=== PATIENT | female | born 1935 | race Two or more races ===

== ENCOUNTER 2018-12-21 15:34 | Emergency (ER) | payer OTHER, MEDICAID ==
[~2018-12-21] VITALS: Ht 157.5 cm; Wt 56.2 kg
[2018-12-21 15:38] VITALS: BP 122/73
[2018-12-21 18:49] VITALS: BP 122/73
== END 2018-12-21 18:49 | disposition home or self-care (01) ==
LOC: MED 15:34
DX: L03.211 Cellulitis of face (principal)
CPT/HCPCS: 99283

== ENCOUNTER 2019-03-06 09:37 | Inpatient (IN) | payer OTHER, MEDICAID ==
[~2019-03-06] VITALS: Ht 162.6 cm; Wt 59.0 kg
[2019-03-06 09:44] VITALS: BP 105/57
--- NOTE | 2019-03-06 09:50 | NUR ---
83 YR OLD F BIB FAMILY W/ C/O FALL AROUND 3AM TODAY. PT STATES SHE TRIPPED OVER A FAN IN HER ROOM AND LANDED ON HER L SIDE. PT DENIES LOC. PAIN 9/10 TO L SIDE OF BODY. BRUISES NOTED IN LT MEDIAL KNEE. ABLE TO MOVE BLE WELL, DENIES SOB, NO VISUAL LT FLANK BRUISING NOTED. HX: CHF, osteoporosis, ICD RX: ASPIRIN, ENTRESTO
--- NOTE | 2019-03-06 10:26 | NUR ---
EVALUATING PT W/ FAMILY AT BEDSIDE
--- NOTE | 2019-03-06 10:44 | NUR ---
ACTIVE DIRECTORY SYSTEMS ADMINISTRATOR, EDEN RUSSELL AT BEDSIDE
--- NOTE | 2019-03-06 14:09 | NUR ---
placed knee immobilizer on left knee of pt
[2019-03-06] MEDS ORDERED: HYDROcodone/APAP 5/325 MG 1 TAB TAB PO PRN ×2 (14:30→15:00)
--- NOTE | 2019-03-06 14:55 | NUR ---
Unable to obtain medication reconciliation at this time. Pt does not recall her medications or dosages. Daughter will go to her home and collect her meds and bring them to the hospital for the med rec to be update.
[2019-03-06] MEDS ORDERED: ONDANSETRON 4 MG/2 ML VIAL IVP PRN (15:00)
[2019-03-06] MEDS ORDERED: LORazepam 2 MG/ML VIAL IVP PRN (15:00)
[2019-03-06] MEDS ORDERED: ACETAMINOPHEN 325 MG TAB PO PRN (15:00)
[2019-03-06 15:20] VITALS: BP 96/41
--- NOTE | 2019-03-06 15:20 | NUR ---
Patient will be admitted to care of Dr Chavez. Admited to M/S room 119b. Belongings list completed. Report to FARRUKH Lerma.
--- NOTE | 2019-03-06 15:20 | NUR ---
PATIENT ARRIVED FROM ED. RECEIVED BEDSIDE REPORT FROM [facility] ED NURSE. PATIENT TRANSPORTED VIA GURNEY. PATIENT IS ALERT, AWAKE, AND ORIENTED X4. PATIENT DX: KNEE FRACTURE. LEFT KNEE WITH IMMOBILIZER. IV PLACED INTACT AND PATENT TO LEFT AC 20G SALINE LOCK. PATIENT ORIENTED TO ROOM AND ENVIRONMENT. SAFETY MEASURES PROVIDED. ALL PLANS OF CARE DISCUSSED WITH PATIENT. CALL LIGHT WITHIN REACH.
--- NOTE | 2019-03-06 18:42 | NUR ---
PATIENT IS IN STABLE CONDITION. WILL ENDORSE TO NIGHT NURSE.
[2019-03-06] MEDS ORDERED: CARV12.5 PO (19:01)
[2019-03-06] MEDS ORDERED: XALOS OP (19:01)
[2019-03-06] MEDS ORDERED: FURO-572 PO (19:01)
[2019-03-06] MEDS ORDERED: DIGO0.122 PO (19:01)
[2019-03-06] MEDS ORDERED: ASPI-1718 PO (19:01)
[2019-03-06] MEDS ORDERED: SACU1TAB PO (19:01)
[2019-03-06] MEDS ORDERED: LORA-476 PO (19:01)
[2019-03-06] MEDS ORDERED: OSC500 PO (19:01)
--- NOTE | 2019-03-06 19:15 | NUR ---
DR. GAMBOA CALLED BACK IN REGARDS TO MEDICATION RECONCILIATION. PER CONTINUE HOME MEDICATIONS.
--- NOTE | 2019-03-06 19:15 | NUR ---
REPORT GIVEN TO [employer] [employer] MAIL CARRIER NURSE. PATIENT IS IN STABLE CONDITION.
--- NOTE | 2019-03-06 19:20 | NUR ---
REECEIVED PT FROM DAY SHIFT NURSE PT IS AAOX4 WITH LEFT KNEE FX DENIES ANY PAIN AT THIS TIME CALLL LIGHT REACH;;, INITIAL ASSESSMENT DONE
[2019-03-06] MEDS ORDERED: LORazepam 1 MG TAB PO PRN (19:35)
[2019-03-06 20:00] VITALS: BP 111/74
[2019-03-06] MEDS: LATANOPROST 0.005% OP 2.5 ML BTL OP SCH (20:44)
--- NOTE | 2019-03-06 23:00 | NUR ---
PT SLEEPING WELL AFTER ATIVAN GIVEN FOR ANXIOUS
[2019-03-07] VITALS: BP 107/66
--- NOTE | 2019-03-07 03:07 | NUR ---
PT REMAIN STABLE AT THIS TIME NOT DISTRESS NOTED
--- NOTE | 2019-03-07 05:34 | NUR ---
SPONGE BATH GIVEN LINEN CHANGED NOT DISTRESS NOTED REPOSITIONED Q2H
--- NOTE | 2019-03-07 06:19 | NUR ---
;PT RESTING ON BED NOT DISTRESS NOTED PENDING TO BE SEEN BY DR ABREU
--- NOTE | 2019-03-07 07:28 | NUR ---
RECEIVED REPORT FROM NIGHT RN. PATIENT IS FULL CODE, NKA. PT IS FALL RISK FOR L KNEE FX. FALL RISK PRECAUTIONS IN PLACE, WRISTBAND APPLIED, SIGN AT DOOR, YELLOW SOCKS ON. PATIENT HAS A LEFT AC 20G HEP LOCK. PATIENT IS TO HAVE CONSULT WITH DR ABREU. PATIENT USES BEDPAN. WILL REVIEW AND CONTINUE WITH PLAN OF CARE FOR THE DAY.
[2019-03-07 08:00] VITALS: BP 110/70
[2019-03-07 08:16] LABS: BASOPHILS # (AUTO) 0.1 K/uL (0.00-0.22); BASOPHILS % (AUTO) 0.9 % (0.0-2.0); EOSINOPHILS # (AUTO) 0.3 K/uL (0-0.4); EOSINOPHILS % (AUTO) 4.6 % (0.0-4.0); HEMATOCRIT 37.4 % (36-48); HEMOGLOBIN 12.3 g/dL (12.0-16.0); LYMPHOCYTES # (AUTO) 1.8 K/uL (2.5-16.5); LYMPHOCYTES % (AUTO) 31.9 % (20.5-51.1); MEAN CORPUSCULAR HEMOGLOBIN 31 pg (27-31); MEAN CORPUSCULAR HGB CONC 33 g/dL (33-37); MEAN CORPUSCULAR VOLUME 94.4 fL (80-94); MONOCYTES # (AUTO) 0.5 K/uL (0.8-1.0); MONOCYTES % (AUTO) 8.4 % (1.7-9.3); NEUTROPHILS # (AUTO) 3.1 K/uL (1.8-7.7); NEUTROPHILS % (AUTO) 54.2 % (42.2-75.2); PLATELET COUNT (AUTO) 133 K/uL (140-450); RED BLOOD CELL COUNT(AUTO) 3.96 MIL/uL (4.20-5.40); RED CELL DISTRIBUTION WIDTH 14.4 % (11.6-13.7); WHITE BLOOD COUNT (AUTO) 5.8 K/uL (4.8-10.8)
--- NOTE | 2019-03-07 08:33 | NUR ---
PATIENT HAS BEEN SCREENED AND CATEGORIZED LOW NUTRITION RISK. PATIENT WILL BE SEEN WITHIN 7 DAYS OF ADMISSION. 03/13/[address]
[2019-03-07 09:00] LABS: ALBUMIN 3.2 g/dL (3.4-5.0); ANION GAP 13.2 (8-16); ASPARTATE AMINOTRANSFERASE 22 U/L (15-37); CARBON DIOXIDE 24.9 mmol/L (21-32); CHLORIDE 109 mmol/L (98-107); GLUCOSE 92 mg/dL (74-106); POTASSIUM 5.1 mmol/L (3.5-5.1); SODIUM SERUM 142 mmol/L (136-145); TOTAL BILIRUBIN 1.3 mg/dL (0.0-1.0); UREA NITROGEN, BLOOD 16 mg/dL (7-18)
[2019-03-07] MEDS ORDERED: CARVEDILOL 12.5 MG TAB PO SCH (09:00)
[2019-03-07] MEDS ORDERED: ENOXAPARIN 40 MG/0.4 ML SYR SUBQ SCH (09:00)
[2019-03-07] MEDS ORDERED: VALSARTAN PO SCH (09:00)
[2019-03-07] MEDS ORDERED: DIGOXIN 0.125 MG TAB PO SCH (09:00)
[2019-03-07] MEDS ORDERED: FUROSEMIDE 20 MG TAB PO SCH (09:00)
[2019-03-07] MEDS ORDERED: ASPIRIN 81 MG TAB.CHEW PO SCH (09:00)
[2019-03-07] MEDS ORDERED: SACUBITRIL PO SCH (09:00)
[2019-03-07] MEDS: CALCIUM CARBONATE 500 MG TAB PO SCH ×3 (09:56→14:07)
--- NOTE | 2019-03-07 10:00 | NUR ---
ADMINISTERED MORNING CALCIUM AND ASPIRIN. DID NOT ADMINISTER BP MEDICATION FOR BP 91/53 AND HR 55. PT AT BEDSIDE, TO WORK WITH PATIENT.
--- NOTE | 2019-03-07 10:50 | NUR ---
PER PATIENTS REQUEST, ADMINISTERED TYLENOL FOR PAIN. WILL RE-ASSESS
--- NOTE | 2019-03-07 11:30 | NUR ---
PATIENT HAS DISCHARGE ORDER. PATIENTS DAUGHTER AND SON AT BEDSIDE. INFORMED THEM OF DC PLAN FOR PT AT HOME. DAUGHTER DON SPOKE TO DR WALLER REGARDING DC PLANS. WILL F/U.
--- NOTE | 2019-03-07 13:15 | NUR ---
PATIENT IS RESTING IN BED, AWAKE. DAUGHTER AND SON AT BEDSIDE.
--- NOTE | 2019-03-07 14:12 | NUR ---
PATIENTS FAMILY MEMBERS SPOKE TO SOCIAL WORKERS NGOZI ABOUT SNF PLACEMENT. WILL CALL NURSE OB TO F/U
--- NOTE | 2019-03-07 15:34 | NUR ---
DISCHARGE PLANNING: LATE ENTRY: RECEIVED AN ORDER FOR FOR PHYSICAL THERAPY. CONTACTED [facility], ABLE TO SPEAK TO OLIVERIO (ANSWERING SERVICE). SHE STATED IN CHARGE IS DARIO LARA [phone]. CONTACTED THE PROVIDED NUMBER, PER DARIO SHIREEN IN CHARGE FOR THIS PATIENT IS [facility] [phone]. PER [facility] TO GO AHEAD AND FAX OVER ORDER TO [phone]. 1245: RECEIVED A CALL FROM CHARGE NURSE INFORMING ME REGARDING FAMILY REQUEST TO MEET WITH SW. MAKSIM MELVIN MADE AWARE. PER NGOZI FAMILY IS REQUESTING FOR SNF PLACEMENT DUE TO PATIENT LIVES ALONE AND NO IS ABLE TO TAKE CARE OF THE PATIENT. PRIMARY RN ALFONSO OVALLES. I REQUESTED TO GET AN ORDER FOR SNF PLACEMENT FROM DR. WALLER. Addendum: 03/07/19 at 1545 by Em Ang PER VERONA MOSLEY FOR SNF PLACEMENT AND SPOKE TO PATIENT'S INSURANCE ALREADY. ORDER AND PT NOTES FAXED TO [facility]. PER SHIREEN COX, SHE HAS A BED IN [place] RO[address] AND WILL BE ABLE TO ARRANGE TRANSPORT. WILL CALL ME BACK FOR TRANSPORT INFO AND ETA. PRIMARY RN MADE AWARE. Addendum: 03/07/19 at 1711 by Em Ang CM MET WITH THE PATIENT AND HER DAUGHTER DON AT THE BEDSIDE TO DISCUSS DC PLANNING. PATIENT'S DAUGHTER STATED THAT SHE CALLED THE INSURANCE AND THEY WERE TOLD THAT [facility] THE [facility]IENT. THEY ALSO MENTIONED THE [facility] IF [facility] HAS A BED, PATIENT WANTS TO GO THERE. AND IF THERE IS NOT, [facility] IS FINE. CONTACTED SHIREEN COX, SHE STATED SHE TRIED TO REACH OUT WITH RANJAN MARTINEZ AND LEFT SEVERAL MESSAGES AND THEY DID NOT CALL HER BACK YET. SHE ALSO STATED THEY ARE ABLE TO SET UP A WILL CALL PICK WITH [facility] AND THE EARLIEST THEY CAN CUSTOMER DEVELOPMENT REPRESENTATIVE IS AT 10PM. CONTACTED PATIENT'S DAUGHTER DON AND MADE HER AWARE WHAT THE INSURANCE TOLD ME. SHE STATED [facility] IS OK HOWEVER SHE WAS SAYING THAT THE CUSTOMER DEVELOPMENT REPRESENTATIVE IS LATE AND IF WE CAN DO THE DC TOMORROW. I CONTACTED SHIREEN COX AND MADE HER AWARE, SHE STATED WE HAVE THE DC ORDER ALREADY. Addendum: 03/07/19 at 1719 by Em Ang CM CONTACTED PATIENT'S DAUGHTER DON, NO ANSWER. LEFT MESSAGE. Addendum: 03/07/19 at 1729 by Em Ang CM ABLE TO SPEAK TO PATIENT'S DAUGHTER DON, I INFORMED HER OF WHAT THE INSURANCE TOLD ME. SHE STATED OK, 10PM CUSTOMER DEVELOPMENT REPRESENTATIVE IS OK. Addendum: 03/07/19 at 1732 by Em Ang CM CONTACTED [facility] AT [phone], ABLE TO SPEAK TO OLIVERIO. CUSTOMER DEVELOPMENT REPRESENTATIVE WILL BE AT 10 PM. PRIMARY RN AND CHARGE NURSE MADE AWARE.
--- NOTE | 2019-03-07 15:35 | NUR ---
Personal Care Aid Note: SW met with patient and patient's family regarding discharge plan. Patient expressed concerns with returning home under home health. Family began discussing discharge options amongst themselves and requested to be placed in SNF. SW notified CM and charge nurse. SW will follow up as needed.
--- NOTE | 2019-03-07 15:40 | NUR ---
PATIENT WILL BE DISCHARGED TO [facility] IN ROOM 22A. AWAITING CALL FOR PICKUP TIME.
[2019-03-07 16:00] VITALS: BP 95/52
--- NOTE | 2019-03-07 17:45 | NUR ---
CALLED [facility]. GAVE REPORT TO ABUNDIO CHADWICK, REGARDING PT CARE. NO FURTHER QUESTIONS FROM FACILITY. BUSINESS PROCESS ENGINEER TIME IS 2200. WILL ENDORSE TO NEXT SHIFT RN.
[2019-03-07 18:06] VITALS: BP 95/52
--- NOTE | 2019-03-07 19:20 | NUR ---
ENDORSED PT TO POULTRY HUSBANDRY WORKER NURSE. PT IN STABLE CONDITION
--- NOTE | 2019-03-07 19:25 | NUR ---
RECEIVED PT FROM ALFONSO RN PT AAOX4 S/ FALL ON LEFT KNEE FX IS DISCHARGE TO [facility] REPORT ALREADY GIVEN REGISTRATION REP TIME FROM DEWY ROSE WILL BE AT 22:00 INITIAL ASSESSMENT DONE
[2019-03-07 20:33] VITALS: BP 114/63
[2019-03-07] MEDS: LATANOPROST 0.005% OP 2.5 ML BTL OP SCH (20:39)
--- NOTE | 2019-03-07 22:25 | NUR ---
AMBULANCE IS HERE AND METAL FABRICATOR WELDER PT STABLE NOT PAIN BELONGING GIVEN, PROTOCOL FOR DISCHARGE COMPLETE VSS PT GOING TO [facility]
== END 2019-03-07 22:25 | DRG 563 ==
LOC: MED 09:37 → MTU 14:31
PROVIDERS: ADMIT Internal Medicine Pulmonary Disease; ATTEND Internal Medicine Pulmonary Disease
DX: S82.142A Displaced bicondylar fracture of left tibia, initial encounter for closed fracture (principal); I11.0 Hypertensive heart disease with heart failure; I50.9 Heart failure, unspecified; M17.12 Unilateral primary osteoarthritis, left knee; H40.9 Unspecified glaucoma; M81.0 Age-related osteoporosis without current pathological fracture; W01.0XXA Fall on same level from slipping, tripping and stumbling without subsequent striking against object, initial encounter; Y93.89 Activity, other specified; Y92.89 Other specified places as the place of occurrence of the external cause; Y99.8 Other external cause status; Z95.810 Presence of automatic (implantable) cardiac defibrillator
CPT/HCPCS: 36415; 71101; 72220; 73562; 80053; 85025; 87081; 97116; 97161-GP; 97530; 99285; J1650; J2060; Q0092

== ENCOUNTER 2019-05-28 09:25 | Emergency (ER) | payer OTHER, MEDICAID ==
[~2019-05-28] VITALS: Ht 160 cm; Wt 59.0 kg
[~2019-05-28 09:25] MED LIST: ASPI-1822 PO; CARV12.5 PO; DIGO0.122 PO; FURO-572 PO; LORA-476 PO; OSC500 PO; SACU1TAB PO; XALOS OP
[2019-05-28 09:30] VITALS: BP 92/59
--- NOTE | 2019-05-28 09:35 | NUR ---
Patient transferred to bed 10 via wheelchair by tech. RN evaluating patient at bedside.
--- NOTE | 2019-05-28 10:09 | NUR ---
Dr. Castellanos is evaluating the patient at bedside.
--- NOTE | 2019-05-28 10:11 | NUR ---
84 Y/O F C/C UNWITNESSED FALL LAST NIGHT. PER PT WALKING TO RESTROOM AND FELL, DOES NOT RECALL IF LOC, PT ASSISTED AT HOME BY GRANDSON. PT FURTHER COMPLAINTS OF OCCIPITAL HEAD PAIN DUE TO FALL. 06/13 PAIN. A/OX3; PUPILS PERRLA; AMBULATORY WITH ASSISTANCE, UNSTEADY GAIT. PT NKA. HX HEART FAILURE. RX LASIX. DENIES N/V/D.
[2019-05-28] MEDS ORDERED: ACETAMINOPHEN 325 MG TAB PO ONE (10:15)
--- NOTE | 2019-05-28 10:30 | NUR ---
pt taken to xray via paulette
[2019-05-28 11:42] VITALS: BP 92/59
--- NOTE | 2019-05-28 11:42 | NUR ---
Patient discharged with v/s stable. Written and verbal after care instructions given and explained. Patient alert, oriented and verbalized understanding of instructions. Wheel Chair Assisted with steady gait. All questions addressed prior to discharge. ID band removed. Patient advised to follow up with PMD. Rx of NORCO given. Patient educated on indication of medication including possible reaction and side effects. Opportunity to ask questions provided and answered.
== END 2019-05-28 11:42 | disposition home or self-care (01) ==
LOC: MED 09:25
DX: S30.0XXA Contusion of lower back and pelvis, initial encounter (principal); S80.02XA Contusion of left knee, initial encounter; I11.0 Hypertensive heart disease with heart failure; I50.9 Heart failure, unspecified; K21.9 Gastro-esophageal reflux disease without esophagitis; Z98.890 Other specified postprocedural states; Z95.0 Presence of cardiac pacemaker; Z79.82 Long term (current) use of aspirin; Z79.899 Other long term (current) drug therapy; W19.XXXA Unspecified fall, initial encounter; Y93.89 Activity, other specified; Y92.89 Other specified places as the place of occurrence of the external cause; Y99.8 Other external cause status
CPT/HCPCS: 72100; 73562; 93005; 99284; Q0092

== ENCOUNTER 2020-11-09 08:11 | Emergency (ER) | payer OTHER, MEDICAID ==
[~2020-11-09] VITALS: Ht 165.1 cm; Wt 53.5 kg
[2020-11-09 08:20] VITALS: BP 121/67
--- NOTE | 2020-11-09 08:24 | NUR ---
PT. AMBULATED WITH PERSONAL WALKER TO BED 11
--- NOTE | 2020-11-09 08:59 | NUR ---
85/F BIB DAUGHTER WITH C/O FALL ON 11/06/20. PT STATES SHE SLIPPED AND FELL AT HER DOCTORS OFFICE, CONTINUES TO HAVE LOWER BACK, LEFT HAND AND BILATERAL KNEE PAIN. PT DENIES ANY HEAD TRAUMA AND ANY LOC. BRUISING NOTED ON L WRIST/HAND. REPORTS TAKING TYLENOL WITH SOME RELIEF. MEDHX: CHF ALLERGIES: DENIES
--- NOTE | 2020-11-09 09:28 | NUR ---
dr. beavers bedside evaluating pt
--- NOTE | 2020-11-09 09:54 | NUR ---
PT TAKEN TO CT VIA [facility].
--- NOTE | 2020-11-09 10:14 | NUR ---
PT BROUGHT BACK FROM CT VIA [facility].
--- NOTE | 2020-11-09 10:15 | NUR ---
PT RETURNED TO BED [address]
--- NOTE | 2020-11-09 10:25 | NUR ---
BLOOD DRAWN BEDSIDE AND GIVEN TO POLICEWOMAN BEDSIDE
[2020-11-09 10:30] LABS: BASOPHILS % (AUTO) 0.7 % (0.0-2.0); EOSINOPHILS # (AUTO) 0.2 K/uL (0-0.4); EOSINOPHILS % (AUTO) 3.8 % (0.0-4.0); HEMATOCRIT 35.5 % (36-48); HEMOGLOBIN 11.7 g/dL (12.0-16.0); LYMPHOCYTES # (AUTO) 1.7 K/uL (2.5-16.5); LYMPHOCYTES % (AUTO) 27.8 % (20.5-51.1); MEAN CORPUSCULAR HEMOGLOBIN 32 pg (27-31); MEAN CORPUSCULAR HGB CONC 33 g/dL (33-37); MEAN CORPUSCULAR VOLUME 95.2 fL (80-94); MONOCYTES # (AUTO) 0.9 K/uL (0.8-1.0); MONOCYTES % (AUTO) 14.5 % (1.7-9.3); NEUTROPHILS # (AUTO) 3.2 K/uL (1.8-7.7); NEUTROPHILS % (AUTO) 53.2 % (42.2-75.2); PLATELET COUNT (AUTO) 128 K/uL (140-450); RED BLOOD CELL COUNT(AUTO) 3.73 MIL/uL (4.20-5.40); RED CELL DISTRIBUTION WIDTH 15.9 % (11.6-13.7)
[2020-11-09 11:44] LABS: ALBUMIN 3.7 g/dL (3.4-5.0); ANION GAP 9.5 (8-16); ASPARTATE AMINOTRANSFERASE 24 U/L (15-37); CARBON DIOXIDE 29.6 mmol/L (21-32); CHLORIDE 106 mmol/L (98-107); CREATININE 1.2 mg/dL (0.6-1.3); GLUCOSE 93 mg/dL (74-106); LIPASE 127 U/L (73-393); POTASSIUM 5.1 mmol/L (3.5-5.1); SODIUM SERUM 140 mmol/L (136-145); TOTAL BILIRUBIN 2.4 mg/dL (0.0-1.0); UREA NITROGEN, BLOOD 18 mg/dL (7-18)
[2020-11-09 12:43] LABS: APPEARANCE,URINE CLEAR (CLEAR); BILIRUBIN,URINE NEGATIVE (NEGATIVE); BLOOD, URINE NEGATIVE (NEGATIVE); COLOR,URINE DARK YELLOW (YELLOW); LEUKOCYTE ESTERASE ,URINE NEGATIVE (NEGATIVE); NITRITE, URINE NEGATIVE (NEGATIVE); PH,URINE 5.5 (5.0-9.0); UGLUCOSE NEGATIVE (NEGATIVE)
[2020-11-09 13:16] LABS: RBC,URINE 0-5 /HPF (0-5); WBC,URINE 0-5 /HPF (0-5)
--- NOTE | 2020-11-09 14:34 | NUR ---
DON, DAUGHTER WAS UPDATED ON HER. WILL COME PICK HER UP.
[2020-11-09 14:49] VITALS: BP 102/60
--- NOTE | 2020-11-09 14:49 | NUR ---
Patient discharged with v/s stable. Written and verbal after care instructions given and explained. Patient verbalized understanding. Ambulatory with steady gait. All questions addressed prior to discharge. Advised to follow up with PMD.
--- NOTE | 2020-11-09 14:49 | NUR ---
IV removed, catheter intact and site benign. Applied folded 4x4 gauze and tape to stop bleeding.
== END 2020-11-09 14:49 | disposition home or self-care (01) ==
LOC: MED 08:11
DX: M54.5 Low back pain (principal); E53.1 Pyridoxine deficiency; I11.9 Hypertensive heart disease without heart failure; K21.9 Gastro-esophageal reflux disease without esophagitis; W19.XXXA Unspecified fall, initial encounter; Y93.89 Activity, other specified; Y92.89 Other specified places as the place of occurrence of the external cause; Y99.8 Other external cause status
CPT/HCPCS: 36415; 70450; 71045; 72125; 72131; 80053; 81001; 83690; 84484; 85025; 93005; 99285

== ENCOUNTER 2021-09-02 10:14 | Emergency (ER) | payer OTHER, MEDICAID ==
[~2021-09-02] VITALS: Ht 167.6 cm; Wt 59.0 kg
[2021-09-02 10:28] VITALS: BP 157/59
--- NOTE | 2021-09-02 10:36 | NUR ---
PT AMBULATED TO ER BE 4
--- NOTE | 2021-09-02 10:44 | NUR ---
RAD AT BEDSIDE
--- NOTE | 2021-09-02 10:54 | NUR ---
86 Y/O FEMALE C/O L GREAT TOE BUNION. PT WAS REFERRED BY HER PCP TO COME GET IT LOOKED AT. +2 PITTING EDEMA TO BILATERAL ANKLES/LOWER LEGS. PT REPORTS POOR CIRCULATION/VARICOSE VEINS WHICH CAUSES HER NUMBNESS &SWELLING- REPORTS TAKING LASIX DAILY. PT DENIES PAIN AT THIS TIME. ONLY C/O PAIN WHEN WALKING. STEADY GAIT. PT A/O X4 WITH EVEN AND UNLABORED RESPIRATIONS PMH: CHF NKA SX:VARICOSE SURGERY BILAT LEGS
[2021-09-02 14:08] VITALS: BP 145/62
== END 2021-09-02 14:08 | disposition home or self-care (01) ==
LOC: MED 10:14
DX: M79.672 Pain in left foot (principal); I50.9 Heart failure, unspecified; K21.9 Gastro-esophageal reflux disease without esophagitis; I10 Essential (primary) hypertension; Z98.890 Other specified postprocedural states; Z79.899 Other long term (current) drug therapy; Z79.82 Long term (current) use of aspirin
CPT/HCPCS: 73630; 99283

== ENCOUNTER 2021-11-13 17:06 | Emergency (ER) | payer OTHER, MEDICAID ==
[~2021-11-13] VITALS: Ht 160 cm; Wt 51.3 kg
[2021-11-13 17:18] VITALS: BP 113/76
--- NOTE | 2021-11-13 18:13 | NUR ---
PT HAS AICD WITH WIRELESS MONITOR. PT STATES HEARD BUZZING FROM MONITOR, DENIES ANY SHOCK OR PALPITATION. SPOKE TO [employer] REP WHO STATES WILL BE HERE APPROX 1 HOUR FOR INTERPRETATION.
--- NOTE | 2021-11-13 19:30 | NUR ---
StylytWU HARTMANN IS AT BEDSIDE.
--- NOTE | 2021-11-13 20:25 | NUR ---
SHAHBAZ FROM [employer] STATES EVERYTHING IS OK. THE BUZZ SOUND CAME FROM THE MACHINE AND CAN BE A SATELLITE ISSUE.
[2021-11-13 21:09] VITALS: BP 103/58
== END 2021-11-13 21:23 | disposition home or self-care (01) ==
LOC: MED 17:06
DX: T82.119A Breakdown (mechanical) of unspecified cardiac electronic device, initial encounter (principal); I50.9 Heart failure, unspecified; I10 Essential (primary) hypertension; K21.9 Gastro-esophageal reflux disease without esophagitis; Z79.899 Other long term (current) drug therapy; Z98.890 Other specified postprocedural states
CPT/HCPCS: 71045; 93005; 99283

== ENCOUNTER 2021-12-12 09:58 | Emergency (ER) | payer OTHER, MEDICAID ==
[~2021-12-12] VITALS: Ht 160 cm; Wt 50.4 kg
[2021-12-12 10:03] VITALS: BP 109/62
[2021-12-12] MEDS ORDERED: KETOROLAC 60 MG/2 ML VIAL IM ONE (10:30)
[2021-12-12 13:15] VITALS: BP 102/56
== END 2021-12-12 13:12 | disposition home or self-care (01) ==
LOC: MED 09:58
DX: M25.561 Pain in right knee (principal); M25.562 Pain in left knee; M25.521 Pain in right elbow; M25.522 Pain in left elbow; M54.6 Pain in thoracic spine; R07.81 Pleurodynia; K21.9 Gastro-esophageal reflux disease without esophagitis; I11.0 Hypertensive heart disease with heart failure; I50.9 Heart failure, unspecified; Z79.82 Long term (current) use of aspirin; Z79.899 Other long term (current) drug therapy; Z95.0 Presence of cardiac pacemaker; Z98.890 Other specified postprocedural states; Z90.710 Acquired absence of both cervix and uterus; W19.XXXA Unspecified fall, initial encounter; Y93.89 Activity, other specified; Y92.89 Other specified places as the place of occurrence of the external cause; Y99.8 Other external cause status
CPT/HCPCS: 71101; 72040; 73080; 73521; 73562; 96372; 99284; J1885